=== PATIENT | male | born 1980 | race Caucasian/White ===

== ENCOUNTER 2020-09-29 14:00 | Emergency (ER) | payer BC, SELFPAY ==
[2020-09-29 14:09] VITALS: BP 125/81; PULSE 88; RESP 18; TEMP 36.7; O2SAT 99
--- NOTE | 2020-09-29 14:23 | ED.URI ---
HPI - URI/Sore Throat General Chief Complaint: Upper Respiratory Infection Stated Complaint: weakness History of Present Illness HPI Narrative: Patient comes in complaining of feeling tired and weak with some nausea and diarrhea with a sore arm. Patient states that he started to feel this way 24 hours after he rcvd his covid vaccination and he has not been feeling well since. Patient denies sob, fever, headache or loss of taste. Related Data Home Medications Medication Instructions Recorded Confirmed alprazolam 0.25 mg PO PRN PRN 09/29/20 09/29/20 amitriptyline 25 mg PO DAILY 09/29/20 09/29/20 dextroamphetamine-amphetamine 30 mg PO DAILY 09/29/20 09/29/20 [Adderall XR] temazepam 30 mg PO DAILY 09/29/20 09/29/20 venlafaxine 150 mg PO DAILY 09/29/20 09/29/20 Allergies Allergy/AdvReac Type Severity Reaction Status Date / Time No Known Allergies Allergy Unknown Verified 09/29/20 14:06 Review of Systems Review of Systems: Narrative: CONSTITUTIONAL: Denies fever, chills, or sweats. EYES: Denies visual changes, redness, or discharge. ENT: Denies rhinorrhea, congestion, sore throat, or otalgia. CARDIOVASCULAR:Denies chest pain, palpitations, or edema. RESPIRATORY: Denies cough or dyspnea. GASTROINTESTINAL: Denies abdominal pain, reports nausea, vomiting, or diarrhea. GENITOURINARY: Denies dysuria or hematuria. SKIN:[Denies rash or itching. MUSCULOSKELETAL:Denies back pain, joint pain, or myalgia. NEUROLOGIC: Denies headache, numbness, or weakness. PSYCHIATRIC:Denies anxiety or depression [facility] Past Medical History Medical History Hypothyroidism Family History Family History Father Family history of atrial fibrillation Social History Social History Smoking packs per day: 0.5 Smoking cigarettes per day: 10.0 Years smoked: 15 Smoking pack-years: 7.50 Smoking status: Former smoker Tobacco type: cigarettes Second hand tobacco smoke exposure: No Smoking end date: 03/25/17 Alcohol intake: former Substance use: never Substance use type: does not use Gender identity (if verbalized by the patient): Male Comments At time as signature, I have reviewed and agree with nursing past medical, social, surgical and family history. Please see nursing chart for further information. There is no relevant family history pertinent to the presenting complaint. Exam Narrative: Exam Narrative: GENERAL:Ill -appearing, well-nourished, and in no acute distress. HEAD:Normocephalic, atraumatic. EYES: PERRLA and EOMI. ENT: Nares clear, no rhinorrhea or epistaxis. Mucous membranes moist. NECK: Supple. CHEST: Clear to auscultation. No respiratory distress. HEART: Regular rate and rhythm. No murmur heard. Normal peripheral pulses. ABDOMEN: Soft, nontender, nondistended, normal active bowel sounds. EXTREMITIES: Normal range of motion. No edema. SKIN: Warm, dry, no rash. NEURO: No focal deficits. Alert and oriented x3. Exam essentially negative Course Vital Signs Vital signs: Vital Signs Temperature 98.0 F 09/29/20 14:09 Pulse Rate 88 09/29/20 14:09 Respiratory Rate 18 09/29/20 14:09 Blood Pressure 125/81 09/29/20 14:09 Pulse Oximetry 99 09/29/20 14:09 Temperature 98.0 F 09/29/20 14:09 Pulse Rate 88 09/29/20 14:09 Respiratory Rate 18 09/29/20 14:09 Blood Pressure 125/81 09/29/20 14:09 Pulse Oximetry 99 09/29/20 14:09 MDM - URI/Sore Throat Differential Diagnosis Differential diagnosis: Likely upper respiratory infection, otitis media, sinusitis, viral infection and other Discharge Plan Discharge Clinical Impression: Viral infection Nausea & vomiting Qualifiers: Vomiting type: unspecified Vomiting Intractability: unspecified Qualified Code(s): R11.2 - Nausea with vomiting, unspecified Patien
== END 2020-09-29 15:06 | disposition home or self-care (01) ==
PROVIDERS: Emergency Provider Nurse Practitioner Family; PCP Family Medicine
DX: B34.9 Viral infection, unspecified (principal); R11.2 Nausea with vomiting, unspecified; Z87.891 Personal history of nicotine dependence; E03.9 Hypothyroidism, unspecified
CPT/HCPCS: 99213; G0463

== ENCOUNTER 2025-02-03 12:01 | Emergency (ER) | payer SELFPAY ==
--- OUTSIDE RECORDS SUMMARY | 2008-05-22 18:00 | XMS_ITS | Continuity of Care Document ---
Author Organization [facility] Address [address] [place] [address] Phone Care Team Providers Care Zigzagger Name Role Phone CONV, [facility] Unavailable Unavailable Advance Directives Directive Yes / No Effective Date File Name No Information Encounters Encounter Description Practice Location Reason(s) For Visit Diagnoses Date Provider Providers Copied on Encounter [facility] /[facility], [address] [place] [address], [facility], tel:[phone] Z [facility] CONV No Information CONV [facility]. [address] [place] [address], [facility], [place]. Family History Family Member Type Diagnosis Age At Onset No Information Immunizations Vaccine Date Status Comments [id number], PED/ADL administered Source: New Immuniza tion Record DTP administered Source: New Imm unization Record ORAL POLIO administered Source: New Imm unization Record DTP administered Source: New Imm unization Record ORAL POLIO administered Source: New Imm unization Record [id number], PED/ADL administered Source: New Immuniza tion Record DTP administered Source: New Imm unization Record ORAL POLIO administered Source: New Imm unization Record DTP administered Source: New Imm unization Record ORAL POLIO administered Source: New Imm unization Record DTP administered Source: New Imm unization Record ORAL POLIO administered Source: New Imm unization Record Payers Payer name Insurance type Covered republican ID Authoriza tion(s) No Information Social History Type Description Quantity Date Captured Comments Sex Male Smoking Status No Information Chief Complaint And Reason For Visit No Information History Of Present Illness Encounter Date Complaint History Of Prese nt Illness No Information Instructions Date Instruction Additional Infor mation No Information Assessments Type Assessment Date No Information Patient Care Teams Name Effective Dates (start - stop) Status Members No Information
[2025-02-03 12:11] VITALS: BP 131/67; PULSE 98; RESP 20; TEMP 36.5; O2SAT 99
--- OUTSIDE RECORDS SUMMARY | 2025-02-03 13:22 | XMS_ITS | Clinical Summary ---
Author Organization [facility] Address [address] [place] [address] Care Team Providers Care Piping Designer Name Role Phone Esau Joshi MD Primary Care Provider Source Comments [facility],non-owned Affiliates and Associated Physician Practices is amultiple site organization consisting of ambulatory clinics and hospital sitesin [place], [place], [place] and [place]. This disclosure is being madepursuant to the Care Everywhere program and may not contain all information available regarding this patient. Last updated 17.[facility] Medications * Be aware that medications may not be up to date on this document. Alwaysverify current medications with the patient. cyclobenzaprine (FLEXERIL) 10 MG tablet Take 10 mg by mouth 3X/day PRN (Muscle Spasms). 30 tablet 0 10/29/2016 Active ALPRAZolam (XANAX) 0.25 MG tablet 3 10/23/2016 Active sertraline (ZOLOFT) 100 MG tablet 3 10/16/2016 Active amphetamine-dext roamphetamine (ADDERALL) 10 MG tablet Take 10 mg by mouth DAILY. 10/15/2016 Active levothyroxine (SYNTHROID) 150 MCG tablet Take 150 mcg by mouth DAILY. 10/15/2016 Active gabapentin (NEURONTIN) 100 MG capsule Take 100 mg by mouth TID. 90 capsule 3 10/15/2016 Active Active Problems Problem Noted Date Diagnosed Date Acquired short Achilles tendon of right lower ex tremity 10/16/2016 Pain in right ankle 05/30/2015 Personal history of healed traumatic fracture Family History Medical History Relation Name Comments None Known Brother None Known Daughter Heart Disease Father None Known Maternal Aunt None Known Maternal Grandfather None Known Maternal Grandmother None Known Maternal Uncle Depression Mother None Known Other None Known Paternal Aunt None Known Paternal Grandfather Cancer Paternal Grandmother None Known Paternal Uncle None Known Sister None Known Son Relation Name Status Comments Brother Daughter Father Maternal Aunt Maternal Grandfather Maternal Grandmother Maternal Uncle Mother Other Paternal Aunt Paternal Grandfather Paternal Grandmother Paternal Uncle Sister Son Social History Tobacco Use Types Packs/Day Years Used Date Smoking Tobacco: Former Cigarettes 0.5 Q uit: 03/28/2014 Alcohol Use Standard Drinks/Week Comments Not Asked 0 (1 standard drink = 0.6 oz pur e alcohol) Sex and Gender Information Value Date Recorded Sex Assigned at Not on file Legal Sex Male 5:29 PM [employer] Gender Identity Not on file Sexual Orientation Not on file Last Filed Vital Signs Vital Sign Reading Time Taken Comments Blood Pressure - - Pulse - - Temperature 36.9 C (98.5 F) 05/30/2015 8:45 AM [employer] Respiratory Rate - - Oxygen Saturation - - Inhaled Oxygen Concentration - - Weight 104.3 kg (230 lb) 10/29/2016 12:33 PM CDT Height 175.3 cm (5' 9) 10/29/2016 12:33 PM CDT Body Mass Index 33.97 10/29/2016 12:33 PM CDT Plan of Treatment Health Maintenance Due Date Last Done Comments COLOGUARD (AGES 45-75) - COL ON CA SCREENING 1978 COLON MONITORING 1978 COLONOSCOPY - COLON CA SCREENING 1978 CT COLONOGRAPHY - COLON CA SCREENING 1978 Colorectal Cancer Screening 1978 FIT - COLON CA SCREENING 1978 FLEX SIG - COLON CA SCREENING 1978 LIPID TESTING 1978 HIV SCREENING 1993 HEPATITIS C SCREENING 11/25/1996 DTAP/TDAP/TD VACCINES (1 - Tdap) 1997 HEPATITIS B VACCINE (1 of 3 - 19+ 3-dose series) 1997 DEPRESSION SCREENING 03/25/2024 COVID-19 VACCINE (1 - 2023-2 5 season) 2024 INFLUENZA VACCINE (#1) 2024 ZOSTER VACCINE (1 of 2) 2028 HIB VACCINE Aged Out No longer eligi ble based on patient's age to complete this topic HPV VACCINE Aged Out No longer eligi ble based on patient's age to complete this topic MENINGOCOCCAL (Group B) VACC INE SHARED DECISION-MAKING Aged Out No longer eligibl e based on patient's age to complete this topic MENINGOCOCCAL GROUPS A/C/Y/W VACCINE Aged Out No longer eligible b ased on patient's age to complete this topic PNEUMOCOCCAL VACCINE Aged Out No long er eligible based on patient's age to complete this topic Care Teams Piping Designer Relationship Specialty Start Date End Date Esau Joshi MD [address] [place] [address] PCP - General 04/19/15
--- OUTSIDE RECORDS SUMMARY | 2025-02-03 13:22 | XMS_ITS | Patient Health Record ---
Author Organization [facility] [employer] Address [address] [place] [address] Care Team Providers Care Comic Illustrator Name Role Phone Charo Iqbal MD Primary Care Provider Unavail able Jesse Keene Unavailable [phone] Josh Hinton Unavailable [phone] Allergies No Known Allergies Reason For Referral No Information Medications Medication SIG (Take, Route, Frequency, Duration) Notes Start Date End Date Status Amphetamine-Dextroamphet ER 30 MG Capsule Extended Release 24 Hour 1 capsule in the morning Oral Once a day; Duration: 30 days 09/03/2024 Active traZODone HCl 100 MG Tablet 1 tablet Ora l Once a day; Duration: 30 days Active Amphetamine-Dextroamphet ER 30 MG Capsule Extended Release 24 Hour 1 capsule in the morning Orally Once a day; Duration: 30 days 06/25/2024 Unknown Levothyroxine Sodium 25 MCG Tablet TAKE 1 TABLET BY MOUTH ONCE DAILY IN THE MORNING WITH 200MCG TABLET TO MAKE 225 MCG TOTAL DAILY Oral; Duration: 30 Days Active Sertraline HCl 100 MG Tablet TAKE 2 TABLETS BY MOUTH EVERY MORNING Oral; Duration: 30 Days Active Zaleplon 10 MG Capsule TAKE 1 CAPSULE BY MOUTH EVERY NIGHT; Duration: 30 06/26/2024 Unknown Zaleplon 10 MG Capsule 1 capsule every n ight Oral Once a day; Duration: 30 days 07/08/2024 Active ARIPiprazole 10 MG Tablet TAKE 1 TABLET BY MOUTH DAILY Oral Active Levothyroxine Sodium 200 MCG Tablet Oral Unknown Levothyroxine Sodium 25 MCG Tablet Oral 04/09/2023 Unknown hydrOXYzine Pamoate 25 MG Capsule TAKE 1 CAPSULE BY MOUTH EVERY 6 HOURS NEEDED; Duration: 30 Active Propranolol HCl 10 MG Tablet 1 tablet on an empty stomach Orally twice a day; Duration: 90 days As needed Unknown Sertraline HCl 100 MG Tablet 2 tablet Orally Once a day; Duration: 90 days Active Social History Tobacco Use: Social History Observation Description Date Details (start date - stop date) Former Smoker NA - NA Sex Assigned At : Social History Observation Description Sex Assigned At Male Social History Tobacco Use: Social Info Question Answer Notes Tobacco Control (Standard) Tobacco use: Former smoker Additional Details Category Social Info Options Details Migrated Social History Migrated Social History Alcohol Intake: None 08/16/2022,Tobacco Years: Former smoker 08/16/2022 Problems Problem Type SNOMED Code ICD Code Onset Dates Problem Status W/U Status Risk Notes Problem Mild recurrent major depression (83757992) Major depressive disorder, recurrent, mild (F33.0) Active confirmed Problem Generalized anxiety disorder (40168562) Generalized anxiety disorder (F41.1) Active confirmed Problem Insomnia disorder related to another mental disorder (38022514) Insomnia due to other mental disorder (F51.05) Active confirmed Problem Attention deficit hyperactivity disorder, combined type (77191123) Attention-deficit hyperactivity disorder, combined type (F90.2) Active confirmed Problem Severe recurrent major depression without psychotic features (04673434) Severe episode of recurrent major depressive disorder, without psychotic features (F33.2) Active confirmed Vital Signs Heart Rate 101 /min 05/15/2024 Height-cm 175.26 cm 07/08/2024 Blood pressure diastolic 88 mm Hg 05/15/2024 Weight-kg 102.06 kg 05/15/2024 Height 69.00 in 07/08/2024 Blood pressure systolic 135 mm Hg 05/15/2024 Weight 225.0 lbs 05/15/2024 BMI 33.22 kg/m2 05/15/2024 Encounters Encounter Location Date Provider Diagnosis [employer] [address] [facility] [address] [place] [address] 03/03/2024 Jesse Keene [facility] [employer] [facility], [facility] [address] [facility] [address] [place] [address] 05/15/2024 Josh [employer]b Insomnia due to othe r mental disorder F51.05 ; Severe episode of recurrent major depressive disorder, without psychotic features F33.2 and Generalized anxiety disorder F41.1 [employer] [facility] [address] [place] [address] 06/03/2024 Jesse Keene [facility], [facility] [address] [place] [address] 07/08/2024 Jesse Keene Attention-deficit hyperactivity disorder, combined type F90.2 ; Insomnia due to other mental disorder F51.05 ; Generalized anxiety disorder F41.1 and Major depressive disorder, recurrent, mild F33.0 [facility], [facility] [address] [place] [address] 08/05/2024 Jesse Keene [facility], [facility] [address] [place] [address] 02/07/2024 Jesse Keene Attention-deficit hyperactivity disorder, combined type F90.2 [facility], [facility] [address] [place] [address] 02/25/2024 Jessejeanne Mooza [facility], [facility] [address] [place] [address] 03/16/2024 Jesse Keene Attention-deficit hyperactivity disorder, combined type F90.2 [facility], [facility] [address] [place] [address] 04/30/2024 Jesse Keene Attention-deficit hyperactivity disorder, combined type F90.2 [facility], [facility] [address] [place] [address] 05/14/2024 Jesse Keene [facility], [facility] [address] [place] [address] 06/23/2024 Jesse Keene [facility], [facility] [address] [place] [address] 06/24/2024 Jesse Keene Attention-deficit hyperactivity disorder, combined type F90.2 [facility], [facility] [address] [place] [address] 08/14/2024 Jesse Keene Attention-deficit hyperactivity disorder, combined type F90.2 [facility], [facility] [address] [place] [address] 08/31/2024 Jesse Keene Attention-deficit hyperactivity disorder, combined type F90.2 and Insomnia due to other mental disorder F51.05 [facility], [facility] [address] [address] 11/19/2024 Jesse Keene Assessments Encounter Date Diagnosis (ICD Code) Assessment Notes Treatment Notes Treatment Clinical Notes Section Notes 02/07/2024 Attention-deficit hyperactivity disorder, combined type (ICD-10 - F90.2) 03/16/2024 Attention-deficit hyperactivity disorder, combined type (ICD-10 - F90.2) 04/30/2024 Attention-deficit hyperactivity disorder, combined type (ICD-10 - F90.2) 05/15/2024 Insomnia due to other mental disorder (ICD-10 - F51.05) 05/15/2024 Severe episode of recurrent major depressive disorder, without psychotic features (ICD-10 - F33.2) 06/24/2024 Attention-deficit hyperactivity disorder, combined type (ICD-10 - F90.2) 07/08/2024 Attention-deficit hyperactivity disorder, combined type (ICD-10 - F90.2) cont adderall xr 30mg daily 08/14/2024 Attention-deficit hyperactivity disorder, combined type (ICD-10 - F90.2) 08/31/2024 Attention-deficit hyperactivity disorder, combined type (ICD-10 - F90.2) 07/08/2024 Insomnia due to other mental disorder (ICD-10 - F51.05) using sleep reset program through melissa on his phone, Zaleplon 10mg hs 08/31/2024 Insomnia due to other mental disorder (ICD-10 - F51.05) 05/15/2024 Generalized anxiety disorder (ICD-10 - F41.1) 07/08/2024 Generalized anxiety disorder (ICD-10 - F41.1) Cont Sertraline 150mg daily 07/08/2024 Major depressive disorder, recurrent, mild (ICD-10 - F33.0) 05/15/2024 Other Sertraline material was published, Zaleplon material was published, Alprazolam material was published, Propranolol (Cardiovascula r) material was published Assessment and plan reviewed with patient Call for problems with medication, side effects or need for dosage change Compliance issues reviewed Discussed the risks/benefits of this medication Discussed medication side effects Return if symptoms worsen Treatment options reviewed. discussed that it can take weeks to see full therapeutic effects of psychotropic medications. discussed when to seek emergency services. discussed crisis prevention hotline 988. 1. Generalized Anxiety Disorder (KAYCE) - KAYCE score: 20 - Continue sertraline, increase dosage to 200 mg daily. - Initiate propranolol as needed for anxiety or nightmares, avoid if heart rate is below 60 bpm. - Encourage re-establishing therapy with Julianne in [place]. 2. Attention Deficit Hyperactivity Disorder (ADHD) - Continue amphetamine/dextro amphetamine 30 mg daily. - Encourage utilizing downtime at work for online courses to maintain focus and engagement. 3. Insomnia - Continue eszopiclone as prescribed. - Consider adding melatonin 5 mg as needed for kiahuz-ap-ife-nigh t awakenings. - Recommend jdeq-hvf-ebxqeea magnesium glycinate 200-400 mg to improve sleep quality. 4. Panic Disorder - Continue alprazolam as needed for panic attacks. - Encourage therapy 5. Depressive symptoms - BDI: 44 - Monitor depressive symptoms during follow-up appointments. - Encourage re-establishing therapy with Julianne in [place]. - Assess for potential need for additional or alternative antidepressant medications in future visits. - Address extreme fatigue and loss of interest in activities. 6. Decreased libido - Address potential contributing factors, such as depression and anxiety, through therapy and medication management. - Encourage open communication with spouse regarding relationship and intimacy concerns. - Consider impact of medications on libido. 7. Restlessness and Irritability - Monitor symptoms and consider behavioral strategies or medication adjustments to manage restlessness and irritability. 8. Follow-up - Schedule follow-up appointment with Gus on June 01 to assess progress and make necessary adjustments to treatment plan. - Encourage patient to contact crisis prevention hotline at 988 if needed. 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 Insomnia-induced psychosis Assessment: Patient reports recent hospitalization at [facility] on July 11 due to insomnia-induced psychosis. Prior to admission, he experienced severe insomnia (1-3 hours of sleep per night for a month) refractory to usual bedtime routines, meditation, and deep breathing. During hospitalization, he was started on Abilify, trazodone, and Vistaril, which have significantly improved his sleep. Patient now reports sleeping approximately 8 hours per night. However, he continues to experience auditory and visual hallucinations, which started with auditory and progressed to visual. The medical records from the hospitalization noted manic behavior, though the patient does not recall specific incidents. The patient reports overall improvement in his condition as Abilify builds up in his system. Plan: - Continue Abilify 10mg - Continue trazodone (dose not specified) - Refill provided - Continue hydroxyzine (dose not specified) - Refill provided - Follow up in one month to reassess symptoms and medication efficacy Attention Deficit Hyperactivity Disorder (ADHD) Assessment: Patient is currently taking Adderall for ADHD symptoms. He reports difficulty concentrating when attempting to discontinue the medication, as recommended during his recent hospitalization. Plan: - Continue Adderall (dose not specified) - Reassess need for medication and potential alternatives at follow-up appointment Thyroid dysfunction Assessment: Recent thyroid function test revealed elevated TSH of 32.5, indicating hypothyroidism. Patient is currently taking levothyroxine. Plan: - Continue levothyroxine (dose not specified) - Repeat blood screening as ordered by PCP to reassess thyroid function and testosterone levels Possible sleep apnea Assessment: Patient reports continued fatigue upon waking despite improved sleep duration. He has a family history of sleep apnea (father) and reports snoring according to his . No formal sleep study has been conducted to date. Plan: - Consider referral for sleep study to evaluate for sleep apnea the note is transcribed using speech recognition software. It is a reflection of a visit with the patient. It might have some inaccuracy, including medication names and transcribing errors, though efforts have been made to correct them. Plan Of Treatment Next Appt Details Provider Name:Jesse aguayo, 02/09/2025 03:00:00 PM, [address], [facility] [address], [place], [address], Insurance Providers Payer Name Payer Address Payer Phone Subscriber Number Group Number Insured Name Patient Relationship to Insured Coverage Start Date Coverage End Date [employer] [address] [place] [phone] [id number] ABELINO ROONEY Self - patient is the insured 5 Medical (General) History Medical History History ICD Code Problems: Attention deficit hyperactivit y disorder, combined type Generalized anxiety disorder Insomnia disorder related to another men dayana disorder Moderate recurrent major depression , Surgical History Surgery Date(Month/Year) Removal of gallbladder (13258) 3 Any surgical history 01/26/2022
--- NOTE | 2025-02-03 14:57 | PC.NURSE ---
Pt called twice, once at 1400 and again at 1455. No answer. Not seen in waiting room anymore.
--- OUTSIDE RECORDS SUMMARY | 2025-02-03 15:52 | XMS_ITS | Clinical Summary ---
Author Organization [facility] Address [address] [place] [address] Care Team Providers Care Cafe Team Member Name Role Phone Esau Joshi MD Primary Care Provider [phone] Source Comments [facility],non-owned Affiliates and Associated Physician Practices is amultiple site organization consisting of ambulatory clinics and hospital sitesin [place], [place], [place] and [place]. This disclosure is being madepursuant to the Care Everywhere program and may not contain all information available regarding this patient. Last updated 17.[facility] Medications * Be aware that medications may [...] on file Legal Sex Male 5:29 PM [employer] Gender Identity Not on file Sexual Orientation Not on file Last Filed Vital Signs Vital Sign Reading Time Taken Comments Blood Pressure - - Pulse - - Temperature 36.9 C (98.5 F) 05/30/2015 8:45 AM [employer] Respiratory Rate - - Oxygen Saturation - [...] age to complete this topic Care Teams Cafe Team Member Relationship Specialty Start Date End Date Esau Joshi MD [address] [place] [address] PCP - General 04/19/15
== END 2025-02-03 15:07 | disposition left against medical advice (07) ==
PROVIDERS: PCP Family Medicine
DX: R10.9 Unspecified abdominal pain (principal)
CPT/HCPCS: 99199